=== PATIENT | male | born 1950 | race Caucasian/White ===

== ENCOUNTER → 2018-01-13 | Outpatient (CLI) | payer MEDICARE, OTHER ==
[~2018-01-13] MED LIST: AMLO5 PO; ASPI81CH PO; ATEN100 PO; ATOR40TA PO; Amaryl4 MG PO; BUME1 PO; BUPR150ER PO; CLOP75 PO; COLE625 PO; DOCU100 PO; FISH1000 PO; FURO20 PO; GABA300 PO; HYDACE5 PO; HYDR25SUP PR; INSULANPEN SC; JARDIANCE10 MG PO; LISI20 PO; Metoprolol Tar100 MG PO; POTCHL20ER PO; SERT50 PO
== END ==
LOC: PLD 07:14
DX: K14.8 Other diseases of tongue (principal)
CPT/HCPCS: 88305; 88312

== ENCOUNTER 2019-03-19 21:09 | Emergency (ER) | payer MEDICARE, OTHER ==
[~2019-03-19] VITALS: Ht 172.7 cm; Wt 113.4 kg
[2019-03-19 22:27] LABS: Hematocrit 44.9 % (37.0-53.0)
[2019-03-19] MEDS ORDERED: CEPH500 PO (22:42)
== END 2019-03-19 23:41 | disposition home or self-care (01) ==
LOC: ER 21:09
PROVIDERS: Physician Assistant
DX: S81.812A Laceration without foreign body, left lower leg, initial encounter (principal); I83.028 Varicose veins of left lower extremity with ulcer other part of lower leg; I10 Essential (primary) hypertension; I25.2 Old myocardial infarction; E11.51 Type 2 diabetes mellitus with diabetic peripheral angiopathy without gangrene; F17.210 Nicotine dependence, cigarettes, uncomplicated; Z79.899 Other long term (current) drug therapy; Z79.4 Long term (current) use of insulin; W19.XXXA Unspecified fall, initial encounter
CPT/HCPCS: 12001; 85014; 85018; 96360-59; 99283-25; J7030

== ENCOUNTER 2021-03-08 10:21 | Day surgery (SDC) | payer MEDICARE, OTHER ==
[~2021-03-08] VITALS: Ht 175.3 cm; Wt 122.0 kg
[~2021-03-08 10:21] MED LIST changes: -BUPR150ER PO; +BUPROPION HCL200 M2 PO; +CEPH500 PO
[2021-03-08] MEDS ORDERED: GABA300 PO (11:03)
--- NOTE | 2021-03-08 14:10 | NUR ---
PT BROUGHT BACK TO RECOVERY ROOM, LEFT GROIN SITE SOFT NON TENDER WITH NO ACTIVE BLEEDING OR OOZING NOTED. ANGIOSEAL IN PLACE, DRESSING C/D/I. PT APPEARS TO BE AOX4. VSS. CALL LIGHT IN REACH.
--- NOTE | 2021-03-08 14:54 | NUR ---
PT PROVIDED WITH MEAL TRAY, TOLERATES WITH NO DIFFICULTIES. HOB RAISED TO 45 DEGREES. PT REQUESTING TO SITE UP ALL THE WAY, EDUCATED ON IMPORTANCE OF LAYING FLAT TO REDUCE CHANCES OF BLEEDING. VERBAL UNDERSTANDING FROM PATIENT. VSS. CALL LIGHT IN REACH.
--- NOTE | 2021-03-08 15:30 | NUR ---
PT HOB RAISED TO 90 DEGREES, LEFT GROIN SITE APPEARS TO BE SOFT WITH NO BLEEDING. PT C/O LOWER BACK DISCOMFORT WHEN TRYING TO LAY FLAT, REPORTS RELIEF WITH HOB BEING RAISED. NO NEEDS AT THIS TIME.
--- NOTE | 2021-03-08 15:50 | NUR ---
PT AMBULATES AROUND IN RECOVERY ROOM, LEFT GROIN SITE REMAINS STABLE POST AMBULATION. PT CALLING FAMILY TO SET UP TRANSPORTATION HOME. DISCUSSION OF DISPO INFORMATION.
--- NOTE | 2021-03-08 16:18 | NUR ---
DISCHARGE INSTRUCTIONS PROVIDED TO PT, VERBAL UNDERSTANDING. PAPERWORK PLACED INTO FOLDER TO TAKE HOME. IV REMOVED FROM LAC WITH CATH INTACT, PRESSURE DRESSING APPLIED. PT GETS DRESSED WITH NO NEEDED ASSISTANCE. FAMILY ARRIVES TO DRIVE PT HOME. TAKEN OUT TO PRIVATE VEHICLE VIA W/C. LEFT GROIN SITE APPEARS SOFT NON TENDER WITH NO BLEEDING OR OOZING NOTED. DRESSING INTACT.
== END 2021-03-08 16:43 | disposition home or self-care (01) ==
LOC: MHTC 10:21
DX: I70.213 Atherosclerosis of native arteries of extremities with intermittent claudication, bilateral legs (principal); I83.893 Varicose veins of bilateral lower extremities with other complications; I10 Essential (primary) hypertension; E78.5 Hyperlipidemia, unspecified; E11.51 Type 2 diabetes mellitus with diabetic peripheral angiopathy without gangrene; F17.210 Nicotine dependence, cigarettes, uncomplicated; Z79.4 Long term (current) use of insulin; Z79.899 Other long term (current) drug therapy
CPT/HCPCS: 37220; 75625; 75716; 75774; 76937; 99152; 99153; C1725; C1760; C1769; C1887; C1894; J1644; J2250; J3010; J7030; J7050; Q9967

== ENCOUNTER 2023-01-16 09:25 | Day surgery (SDC) | payer MEDICARE, OTHER ==
[~2023-01-16] VITALS: Ht 175.3 cm; Wt 118.5 kg
[~2023-01-16 09:25] MED LIST changes: +GLIM4; +JARDIANCE25 MG PO
[2023-01-16] MEDS ORDERED: TRULICITY3 MG/0.5 M SC (12:00)
[2023-01-16] MEDS ORDERED: TOUJEO MAX300 UNIT/2 SC (12:02)
[2023-01-16] MEDS ORDERED: VASCEPA1 G1 PO (12:03)
[2023-01-16] MEDS ORDERED: CHOLESTYRAMI239.4 G1 PO (12:04)
[2023-01-16] MEDS ORDERED: FISH OIL 1,2001 EAC7 PO (12:05)
[2023-01-16] MEDS ORDERED: DOC250 PO (12:05)
--- NOTE | 2023-01-16 12:12 | NUR ---
BROUGHT PATIENT BACK INTO DEPARTMENT DUE TO LOW BLOOD SUGAR FEELING. AMBULATED TO BED WITH SBA; TOLERATED WELL. BLOOD SUGAR WAS CHECKED, 65. CALLED TO DR BAIRD WITH PATIENT STATUS. NEW ORDERS TO GIVE 1AMP D50 AND START D5NS IVF'S. VSS. LAYING DOWN IN BED, FEELING BETTER. WILL RECHECK BLOOD SUGAR.
--- NOTE | 2023-01-16 14:26 | NUR ---
01/16/23 1426 Lucas Loyd History, Chart, Medications and Allergies reviewed before start of procedure.MONITOR INTACT WITH CONTINUOUS PULSE OXIMETRY, CONTINUOUS END TITAL CO2, AND INTERMITTENT BLOOD PRESSURE.3-LEAD EKG REVIEWED WITH PHYSICIAN PRIOR TO START OF PROCEDURE.See Anesthesia record.
--- NOTE | 2023-01-16 15:35 | NUR ---
Discharge instructions reviewed with patient. Patient verbalizes understanding. Copy given to patient to take home. Patient States Post-Procedure ride home has been arranged. Discharged via wheelchair to private car for ride home.
== END 2023-01-16 22:58 | disposition home or self-care (01) ==
LOC: ORSCMMR 09:25 → ORD 11:00 → ORSCMMR 11:00
PROVIDERS: Internal Medicine Gastroenterology
PROC: 0DJD8ZZ Inspection of Lower Intestinal Tract, Via Natural or Artificial Opening Endoscopic (ICD-10-PCS; principal; 2023-01-16 11:00)
DX: Z12.11 Encounter for screening for malignant neoplasm of colon (principal); Z86.010 Personal history of colon polyps; I25.10 Atherosclerotic heart disease of native coronary artery without angina pectoris; E11.40 Type 2 diabetes mellitus with diabetic neuropathy, unspecified; G47.33 Obstructive sleep apnea (adult) (pediatric); E66.01 Morbid (severe) obesity due to excess calories; Z68.41 Body mass index [BMI] 40.0-44.9, adult; E78.1 Pure hyperglyceridemia; Z79.899 Other long term (current) drug therapy; Z79.02 Long term (current) use of antithrombotics/antiplatelets; Z79.4 Long term (current) use of insulin; J44.9 Chronic obstructive pulmonary disease, unspecified; F17.210 Nicotine dependence, cigarettes, uncomplicated; I25.2 Old myocardial infarction
CPT/HCPCS: 82947; J2704; J7070

== ENCOUNTER → 2023-02-04 | Outpatient (CLI) | payer MEDICARE, OTHER ==
[~2023-02-04] MED LIST changes: +CHOLESTYRAMI239.4 G1 PO; +DOC250 PO; +FISH OIL 1,2001 EAC7 PO; +TOUJEO MAX300 UNIT/2 SC; +TRULICITY3 MG/0.5 M SC; +VASCEPA1 G1 PO
[2023-02-04 19:29] LABS: BASOPHILS ABSOLUTE AUTO 0.11 K/mm3 (0.00-0.23); BASOPHILS PERCENT AUTO 1 % (0-2); EOSINOPHILS ABSOLUTE AUTO 0.17 K/mm3 (0.00-0.68); EOSINOPHILS PERCENT AUTO 2 % (0-6); Hematocrit 51.1 % (37.0-53.0); Hemoglobin 17.6 g/dL (13.5-17.5); IMMATURE GRAN ABSOLUTE AUTO 0.05 K/mm3 (0.00-0.10); IMMATURE GRAN PERCENT AUTO 1 % (0-1); LYMPHOCYTES ABSOLUTE AUTO 2.47 K/mm3 (0.84-5.20); LYMPHOCYTES PERCENT AUTO 26 % (21-46); MONOCYTES ABSOLUTE AUTO 0.75 K/mm3 (0.16-1.47); MONOCYTES PERCENT AUTO 8 % (4-13); Mean Corpuscular HGB 29.9 pg (26.0-34.0); Mean Corpuscular HGB Conc 34.4 g/dL (31.5-36.5); Mean Corpuscular Volume 87 fL (80-100); NEUTROPHILS ABSOLUTE AUTO 5.89 K/mm3 (1.96-9.15); NEUTROPHILS PERCENT AUTO 62 % (41-73); Platelet Count 346 K/mm3 (150-400); RDW Coefficient Variation 13.9 % (11.7-14.2); RDW Standard Deviation 43.9 fL (35.1-46.3); Red Blood Cell Count 5.88 M/mm3 (4.30-5.90); White Blood Cell Count 9.44 K/mm3 (4.00-11.30)
[2023-02-04 20:54] LABS: Very Low Density Lipoprot Chol 48 mg/dL (6-32)
[2023-02-04 21:06] LABS: Alanine Aminotransfer (ALT/SGP 39 U/L (12-78); Albumin, Blood 3.8 g/dL (3.4-5.0); Alk Phos 142 U/L (50-136); Anion Gap 4 mmol/L (6-16); Aspartate Aminotrans (AST/SGOT 24 U/L (12-37); Bilirubin, Total 0.6 mg/dL (0.1-1.0); Blood Urea Nitrogen 25 mg/dL (8-24); Bun/Creatinine Ratio 28.8 (12.0-20.0); CHOL/HDL RATIO 2.8; CO2, Blood 25 mmol/L (21-32); Calcium, Blood 8.9 mg/dL (8.5-10.1); Chloride, Blood 107 mmol/L (98-108); Cholesterol 86 mg/dL (50-200); Creatinine, Blood 0.87 mg/dL (0.60-1.20); Glomerular Filtration Rate 92 (60-); Glucose, Blood 150 mg/dL (70-99); HDL Cholesterol 31 mg/dL (>39); LDL/HDL RATIO 0.2; Low Density Lipoprotein Chol 7 mg/dL (0-110); Potassium, Blood 3.9 mmol/L (3.5-5.5); Sodium, Blood 136 mmol/L (136-145); Total Protein, Blood 7.8 g/dL (6.4-8.2); Triglycerides 242 mg/dL (30-160)
== END | disposition home or self-care (01) ==
LOC: LAB 18:39 → LAB SHORT 18:39
PROVIDERS: Nurse Practitioner Family
DX: E11.319 Type 2 diabetes mellitus with unspecified diabetic retinopathy without macular edema (principal); E78.5 Hyperlipidemia, unspecified
CPT/HCPCS: 80053; 80061; 83036; 85025

== ENCOUNTER 2024-11-25 08:33 | Day surgery (SDC) | payer MEDICARE, OTHER ==
[~2024-11-25] VITALS: Ht 172.7 cm; Wt 117.5 kg
[~2024-11-25 08:33] MED LIST changes: +Lactated Ringer's 1,000 ML IV SCH; +OZEMPIC1 MG/0.72 SC; -TRULICITY3 MG/0.5 M SC
[2024-11-25 09:42] VITALS: BP 146/73
[2024-11-25] MEDS ORDERED: Dextrose 50% 50 ML Vial IV ONE ×2 (10:02→10:20)
--- NOTE | 2024-11-25 10:03 | NUR ---
PT'S VENOUS CBG SHOWING BG OF 65. DR. BAIRD NOTIFIED AND VERBAL ORDER FOR 1.5 AMPS D50 OBTAINED. PT DENYING SYMPTOMS OF HYPOGLYCEMIA AT THIS TIME BUT DOES REPORT HX OF FEELING VERY LOW W BLURRED VISION WHEN HIS BG IS AT OR BELOW 60.
[2024-11-25] MEDS ORDERED: propofoL 40 ML IV ONE (10:22)
--- NOTE | 2024-11-25 10:41 | NUR ---
11/25/24 1041 Yola Lanier 1035-History, Chart, Medications and Allergies reviewed before start of procedure.MONITOR INTACT WITH CONTINUOUS PULSE OXIMETRY, CONTINUOUS END TITAL CO2, AND INTERMITTENT BLOOD PRESSURE.3-LEAD EKG REVIEWED WITH PHYSICIAN PRIOR TO START OF PROCEDURE.O2 VIA POM INTACT THROUGHOUT SEDATION/PROCEDURE.DR. FERNANDEZ PROVIDING ANESTHESIA-SEE ANESTHESIA RECORD.
[2024-11-25 11:20] VITALS: BP 100/76
--- NOTE | 2024-11-25 11:23 | NUR ---
REPORT RECEIVED FROM MONSTER MENDIOLA. VSS. PT ON RA. PT ABLE TO REPOSITION SELF IN BED. PT REQUESTING PO FLUIDS AND TOLERATING THEM WELL. PT DENIES PAIN, NAUSEA OR OTHER DISCOMFORTS.
[2024-11-25 11:29] VITALS: BP 173/72
== END 2024-11-25 11:42 | disposition home or self-care (01) ==
LOC: ORSCMMR 08:33 → ORD 10:00 → ORSCMMR 11:42
PROVIDERS: Internal Medicine Gastroenterology
PROC: 0DBK8ZX Excision of Ascending Colon, Via Natural or Artificial Opening Endoscopic, Diagnostic (ICD-10-PCS; principal; 2024-11-25 10:00)
PROC: 0DBN8ZX Excision of Sigmoid Colon, Via Natural or Artificial Opening Endoscopic, Diagnostic (ICD-10-PCS; principal; 2024-11-25 10:00)
DX: K62.5 Hemorrhage of anus and rectum (principal); D12.2 Benign neoplasm of ascending colon; K63.5 Polyp of colon; G47.33 Obstructive sleep apnea (adult) (pediatric); I10 Essential (primary) hypertension; E11.9 Type 2 diabetes mellitus without complications; I25.10 Atherosclerotic heart disease of native coronary artery without angina pectoris; F17.210 Nicotine dependence, cigarettes, uncomplicated; I25.2 Old myocardial infarction; E66.9 Obesity, unspecified; Z68.39 Body mass index [BMI] 39.0-39.9, adult; Z79.899 Other long term (current) drug therapy; Z79.02 Long term (current) use of antithrombotics/antiplatelets; Z79.82 Long term (current) use of aspirin
CPT/HCPCS: 82947; 88305; J2704; J7120; J7799

== ENCOUNTER 2025-03-20 10:37 | Emergency (ER) | payer MEDICARE, OTHER ==
[~2025-03-20] VITALS: Ht 175.3 cm; Wt 113.4 kg
[~2025-03-20 10:37] MED LIST changes: -Lactated Ringer's 1,000 ML IV SCH
[2025-03-20 11:04] VITALS: BP 139/67
== END 2025-03-20 14:09 | disposition home or self-care (01) ==
LOC: ER 10:37
DX: S50.01XA Contusion of right elbow, initial encounter (principal); S60.221A Contusion of right hand, initial encounter; I10 Essential (primary) hypertension; E11.51 Type 2 diabetes mellitus with diabetic peripheral angiopathy without gangrene; G47.30 Sleep apnea, unspecified; I25.2 Old myocardial infarction; F17.210 Nicotine dependence, cigarettes, uncomplicated; W18.30XA Fall on same level, unspecified, initial encounter; Z79.82 Long term (current) use of aspirin; Z79.4 Long term (current) use of insulin; Z79.899 Other long term (current) drug therapy
CPT/HCPCS: 73080; 93971; 99284-25

== ENCOUNTER 2025-05-10 15:57 | Emergency (ER) | payer MEDICARE, OTHER ==
[~2025-05-10] VITALS: Ht 170.2 cm; Wt 111.1 kg
[2025-05-10 17:34] LABS: BASOPHILS ABSOLUTE AUTO 0.11 K/mm3 (0.00-0.23); BASOPHILS PERCENT AUTO 1 % (0-2); EOSINOPHILS ABSOLUTE AUTO 0.12 K/mm3 (0.00-0.68); EOSINOPHILS PERCENT AUTO 1 % (0-6); Hemoglobin 18.3 g/dL (13.5-17.5); IMMATURE GRAN ABSOLUTE AUTO 0.03 K/mm3 (0.00-0.10); IMMATURE GRAN PERCENT AUTO 0 % (0-1); LYMPHOCYTES ABSOLUTE AUTO 2.17 K/mm3 (0.84-5.20); LYMPHOCYTES PERCENT AUTO 23 % (21-46); MONOCYTES ABSOLUTE AUTO 0.73 K/mm3 (0.16-1.47); MONOCYTES PERCENT AUTO 8 % (4-13); Mean Corpuscular HGB Conc 32.9 g/dL (31.5-36.5); Mean Corpuscular Volume 86 fL (80-100); NEUTROPHILS ABSOLUTE AUTO 6.38 K/mm3 (1.96-9.15); NEUTROPHILS PERCENT AUTO 67 % (41-73); NRBC ABSOLUTE 0.00 K/mm3 (0.00-0.02); NRBC Auto 0.0 /100 WBC (0.0-0.2); Platelet Count 425 K/mm3 (150-400); RDW Coefficient Variation 15.8 % (11.7-14.2); RDW Standard Deviation 47.8 fL (35.1-46.3)
[2025-05-10 17:35] LABS: Hematocrit 55.7 % (37.0-53.0)
[2025-05-10 18:22] LABS: Alanine Aminotransfer (ALT/SGP 40.0 U/L (12-78); Albumin, Blood 3.5 g/dL (3.4-5.0); Albumin/Globulin Ratio 0.9 (0.8-1.8); Anion Gap 9.0 mmol/L (3-11); Aspartate Aminotrans (AST/SGOT 32.0 U/L (12-37); Bilirubin, Total 0.7 mg/dL (0.1-1.0); Blood Urea Nitrogen 25.0 mg/dL (8-24); CO2, Blood 28.0 mmol/L (21-32); Calcium, Blood 9.3 mg/dL (8.5-10.1); Chloride, Blood 105.0 mmol/L (98-108); Creatinine, Blood 1.28 mg/dL (0.60-1.20); Globulin, Blood 3.8 g/dL (2.2-4.0); Glucose, Blood 89.0 mg/dL (70-99); Potassium, Blood 4.2 mmol/L (3.5-5.5); Sodium, Blood 138.0 mmol/L (136-145); Total Protein, Blood 7.3 g/dL (6.4-8.2)
[2025-05-10 19:30] VITALS: BP 101/62
== END 2025-05-10 19:46 | disposition home or self-care (01) ==
LOC: ER 15:57
PROVIDERS: Student in an Organized Health Care Education/Training Program
DX: R55 Syncope and collapse (principal); R42 Dizziness and giddiness; S61.216A Laceration without foreign body of right little finger without damage to nail, initial encounter; S50.812A Abrasion of left forearm, initial encounter; S50.811A Abrasion of right forearm, initial encounter; E11.51 Type 2 diabetes mellitus with diabetic peripheral angiopathy without gangrene; I10 Essential (primary) hypertension; I25.2 Old myocardial infarction; F17.210 Nicotine dependence, cigarettes, uncomplicated; G47.33 Obstructive sleep apnea (adult) (pediatric); Z79.82 Long term (current) use of aspirin; Z79.02 Long term (current) use of antithrombotics/antiplatelets; Z79.85 Long-term (current) use of injectable non-insulin antidiabetic drugs; Z79.4 Long term (current) use of insulin; Z79.84 Long term (current) use of oral hypoglycemic drugs; Z79.899 Other long term (current) drug therapy; W18.30XA Fall on same level, unspecified, initial encounter
CPT/HCPCS: 12001; 73130; 80053; 82947; 85025; 93005; 93010; 99284-25

== ENCOUNTER 2025-07-07 17:51 | Emergency (ER) | payer MEDICARE, OTHER ==
[~2025-07-07] VITALS: Ht 177.8 cm; Wt 90.7 kg
[2025-07-07] MEDS ORDERED: Naloxone HCl 1MG / ML 2ML SYR ONE (17:59)
[2025-07-07] MEDS ORDERED: NS 1,000 ML IV SCH ×2 (18:05→19:25)
[2025-07-07] MEDS ORDERED: Naloxone HCl 1MG / ML 2ML SYR IV ONE (18:10)
[2025-07-07] MEDS ORDERED: Piperacillin/Tazobactam Sod 4.5 GM in NS 100 ML IV ONE (18:10)
[2025-07-07] MEDS ORDERED: NALOXONE HCL IV SCH (18:10)
[2025-07-07] MEDS ORDERED: NS IV SCH (18:10)
[2025-07-07 18:12] LABS: pH Blood Venous 7.45 (7.34-7.37)
[2025-07-07 18:18] LABS: Calcium, Ionized (POC) 1.15 mmol/L (1.10-1.46); Chloride (POC) 103 mmol/L (98-108); Creatinine (POC) 1.1 mg/dL (0.8-1.3); Glucose (ISTAT POC) 97 mg/dL (70-99); Hematocrit (POC) 55.0 % (41.0-53.0); Hemoglobin (POC) 18.7 g/dL (13.5-17.5); Potassium (POC) 3.5 mmol/L (3.5-5.5); Sodium (POC) 143 mmol/L (135-148); Total CO2 (POC) 26 mmol/L (21-32)
[2025-07-07 18:27] LABS: BASOPHILS ABSOLUTE AUTO 0.08 K/mm3 (0.00-0.23); BASOPHILS PERCENT AUTO 1 % (0-2); EOSINOPHILS ABSOLUTE AUTO 0.10 K/mm3 (0.00-0.68); EOSINOPHILS PERCENT AUTO 1 % (0-6); Hemoglobin 19.0 g/dL (13.5-17.5); IMMATURE GRAN ABSOLUTE AUTO 0.03 K/mm3 (0.00-0.10); IMMATURE GRAN PERCENT AUTO 0 % (0-1); LYMPHOCYTES ABSOLUTE AUTO 1.10 K/mm3 (0.84-5.20); LYMPHOCYTES PERCENT AUTO 11 % (21-46); MONOCYTES ABSOLUTE AUTO 0.61 K/mm3 (0.16-1.47); MONOCYTES PERCENT AUTO 6 % (4-13); Mean Corpuscular HGB Conc 33.9 g/dL (31.5-36.5); Mean Corpuscular Volume 84 fL (80-100); NEUTROPHILS ABSOLUTE AUTO 7.91 K/mm3 (1.96-9.15); NEUTROPHILS PERCENT AUTO 81 % (41-73); NRBC ABSOLUTE 0.00 K/mm3 (0.00-0.02); NRBC Auto 0.0 /100 WBC (0.0-0.2); Platelet Count 432 K/mm3 (150-400); RDW Coefficient Variation 16.3 % (11.7-14.2); RDW Standard Deviation 46.1 fL (35.1-46.3)
[2025-07-07 18:30] LABS: Hematocrit 56.0 % (37.0-53.0)
[2025-07-07 18:37] LABS: Source, Urine Foley catheter
[2025-07-07 18:41] LABS: Bilirubin, Urine Neg (Neg); Color, Urine Yellow (P-Yellow); Glucose Qualitative, Urine 4+ (Neg); Ketones, Urine Neg (Neg); Leukocyte Esterase, Urine Neg (Neg); Protein, Urine 1+ (Neg); Specific Gravity, Urine 1.010 (1.003-1.022); Urobilinogen, Urine NORM (Normal)
[2025-07-07 18:55] LABS: U Amphetamine Screen Not Detected; U Barbituate Screen Not Detected; U Benzodiazapine Screen Not Detected; U Buprenorphine Screen Not Detected; U Cannabinoids Screen Not Detected; U Cocaine Screen Not Detected; U Methadone Screen Not Detected; U Methamphetamine Screen Not Detected; U Opiates Screen Not Detected; U Oxycodone Screen Not Detected; U Phencyclidine Screen Not Detected
[2025-07-07 19:09] LABS: Osmolality, Serum 294 mos/KG (275-300)
[2025-07-07 19:11] LABS: Ethanol (Alcohol), Blood, Med <3 mg/dL; Thyroid Stimulating Hormone 1.07 uIU/mL (0.360-4.800)
[2025-07-07 19:12] LABS: Acetaminophen, Random <2.0 ug/mL (10.0-30.0); Alanine Aminotransfer (ALT/SGP 33.0 U/L (12-78); Albumin, Blood 3.7 g/dL (3.4-5.0); Albumin/Globulin Ratio 1.0 (0.8-1.8); Anion Gap 10.0 mmol/L (3-11); Aspartate Aminotrans (AST/SGOT 28.0 U/L (12-37); Bilirubin, Total 1.0 mg/dL (0.1-1.0); Blood Urea Nitrogen 15.0 mg/dL (8-24); CO2, Blood 26.0 mmol/L (21-32); Calcium, Blood 9.0 mg/dL (8.5-10.1); Chloride, Blood 106.0 mmol/L (98-108); Creatinine, Blood 1.09 mg/dL (0.60-1.20); Globulin, Blood 3.6 g/dL (2.2-4.0); Glucose, Blood 114.0 mg/dL (70-99); Potassium, Blood 3.6 mmol/L (3.5-5.5); Sodium, Blood 138.0 mmol/L (136-145); Total Protein, Blood 7.3 g/dL (6.4-8.2)
[2025-07-07 19:14] LABS: Prothrombin Time Results 12.0 Sec (9.7-11.5)
[2025-07-07] MEDS ORDERED: NS 1,000 ML IV ONE ×2 (19:20→19:40)
[2025-07-07 21:07] VITALS: BP 98/65
[2025-07-07] MEDS ORDERED: AMOX-CLAV 875-1 EAC1 PO (23:17)
== END 2025-07-07 21:45 | disposition left against medical advice (07) ==
LOC: ER 17:51
PROVIDERS: Student in an Organized Health Care Education/Training Program
DX: R41.82 Altered mental status, unspecified (principal); R50.9 Fever, unspecified; E11.649 Type 2 diabetes mellitus with hypoglycemia without coma; T67.01XA Heatstroke and sunstroke, initial encounter; E87.20 Acidosis, unspecified; E87.3 Alkalosis; J18.9 Pneumonia, unspecified organism; I10 Essential (primary) hypertension; I25.2 Old myocardial infarction; E11.51 Type 2 diabetes mellitus with diabetic peripheral angiopathy without gangrene; F17.210 Nicotine dependence, cigarettes, uncomplicated; Z53.29 Procedure and treatment not carried out because of patient's decision for other reasons; Z79.82 Long term (current) use of aspirin; Z79.4 Long term (current) use of insulin; Z79.899 Other long term (current) drug therapy
CPT/HCPCS: 51702; 70450; 71045; 80047; 80053; 80320; 82140; 82550; 82803; 82947; 83605; 83930; 84443; 85014; 85025; 85610; 85730; 87040; 93005; 93010; 96361; 96365; 96375; 99285-25; A9270; G0480; J2312; J2543; J7030; J7050

== ENCOUNTER 2025-07-13 20:42 | Emergency (ER) | payer MEDICARE, OTHER ==
[~2025-07-13] VITALS: Ht 172.7 cm; Wt 111.1 kg
[~2025-07-13 20:42] MED LIST changes: +AMOX-CLAV 875-1 EAC1 PO
[2025-07-13] MEDS ORDERED: NS 1,000 ML IV SCH (21:05)
[2025-07-13 21:20] LABS: BASOPHILS ABSOLUTE AUTO 0.11 K/mm3 (0.00-0.23); BASOPHILS PERCENT AUTO 1 % (0-2); EOSINOPHILS ABSOLUTE AUTO 0.16 K/mm3 (0.00-0.68); EOSINOPHILS PERCENT AUTO 1 % (0-6); Hemoglobin 19.2 g/dL (13.5-17.5); IMMATURE GRAN ABSOLUTE AUTO 0.03 K/mm3 (0.00-0.10); IMMATURE GRAN PERCENT AUTO 0 % (0-1); LYMPHOCYTES ABSOLUTE AUTO 2.02 K/mm3 (0.84-5.20); LYMPHOCYTES PERCENT AUTO 18 % (21-46); MONOCYTES ABSOLUTE AUTO 0.79 K/mm3 (0.16-1.47); MONOCYTES PERCENT AUTO 7 % (4-13); Mean Corpuscular HGB Conc 33.9 g/dL (31.5-36.5); Mean Corpuscular Volume 84 fL (80-100); NEUTROPHILS ABSOLUTE AUTO 8.26 K/mm3 (1.96-9.15); NEUTROPHILS PERCENT AUTO 73 % (41-73); NRBC ABSOLUTE 0.00 K/mm3 (0.00-0.02); NRBC Auto 0.0 /100 WBC (0.0-0.2); Platelet Count 483 K/mm3 (150-400); RDW Coefficient Variation 16.6 % (11.7-14.2); RDW Standard Deviation 46.0 fL (35.1-46.3)
[2025-07-13 21:26] LABS: Hematocrit 56.6 % (37.0-53.0)
[2025-07-13 21:43] LABS: Alanine Aminotransfer (ALT/SGP 30.0 U/L (12-78); Albumin, Blood 3.7 g/dL (3.4-5.0); Albumin/Globulin Ratio 1.0 (0.8-1.8); Anion Gap 8.0 mmol/L (3-11); Aspartate Aminotrans (AST/SGOT 30.0 U/L (12-37); Bilirubin, Total 1.0 mg/dL (0.1-1.0); Blood Urea Nitrogen 20.0 mg/dL (8-24); CO2, Blood 27.0 mmol/L (21-32); Calcium, Blood 9.1 mg/dL (8.5-10.1); Chloride, Blood 106.0 mmol/L (98-108); Creatinine, Blood 1.37 mg/dL (0.60-1.20); Globulin, Blood 3.8 g/dL (2.2-4.0); Glucose, Blood 76.0 mg/dL (70-99); Potassium, Blood 3.8 mmol/L (3.5-5.5); Sodium, Blood 137.0 mmol/L (136-145); Total Protein, Blood 7.5 g/dL (6.4-8.2)
[2025-07-13 23:21] VITALS: BP 140/68
== END 2025-07-13 23:21 | disposition home or self-care (01) ==
LOC: ER 20:42
PROVIDERS: Student in an Organized Health Care Education/Training Program
DX: R55 Syncope and collapse (principal); E86.0 Dehydration; I10 Essential (primary) hypertension; I25.2 Old myocardial infarction; E11.51 Type 2 diabetes mellitus with diabetic peripheral angiopathy without gangrene; G47.30 Sleep apnea, unspecified; F17.210 Nicotine dependence, cigarettes, uncomplicated; Z95.5 Presence of coronary angioplasty implant and graft; Z79.82 Long term (current) use of aspirin; Z79.85 Long-term (current) use of injectable non-insulin antidiabetic drugs; Z79.02 Long term (current) use of antithrombotics/antiplatelets; Z79.84 Long term (current) use of oral hypoglycemic drugs; Z79.4 Long term (current) use of insulin; Z79.899 Other long term (current) drug therapy
CPT/HCPCS: 80053; 85025; 93005; 93010; 99284-25; J7030